=== PATIENT | female | born 1970 | race Hispanic/Latino ===

== ENCOUNTER 2023-09-10 09:07 | Emergency (ER) | payer OTHER ==
[2023-09-10] MEDS ORDERED: NA CHLORIDE 0.9% 1,000 ML ONE (09:30)
[2023-09-10] MEDS ORDERED: ONDANSETRON 4 MG/2 ML VIAL ONE (09:30)
[2023-09-10 09:53] LABS: Absolute Eosinophils 0.1 K/uL (0-0.5); Absolute Lymphocytes (CBC) 1.4 K/uL (0.7-4.9); Absolute Monocytes 0.5 K/uL (0.1-1.3); Absolute Neutrophil 3.2 K/uL (1.8-8.0); Basophils % 0.6 % (0-1.3); Eosinophils % 1.7 % (0-4.4); Hematocrit 42.9 % (36.0-45.0); Hemoglobin 14.2 g/dL (12.0-15.0); Lymphocytes % 26.3 % (15.3-44.8); MCH 29.3 pg (27.0-35.0); MCHC 33.1 g/dL (32.0-36.0); MCV 88.4 fL (80-100); MPV 8.2 fL (7.6-11.3); Monocytes % 9.5 % (3.3-12.3); Neutrophils % 61.9 % (41.7-73.7); Nucleated Red Blood Cells % 0.2 % (0-0); Platelets 245 thou/uL (152-406); RBC Red Blood Cell Count 4.86 M/uL (3.86-4.86); Red Cell Distribution Width 13.5 % (12.1-15.2)
[2023-09-10 10:12] LABS: Albumin 3.8 g/dL (3.4-5.0); Anion Gap 6.1 mEq/L (5.0-15.0); Bilirubin Total 0.2 mg/dL (0.2-1.0); Globulin 3.9 g/dL (2.3-3.5); Potassium 4.1 mEq/L (3.5-5.1); Protein, Total 7.7 g/dL (6.4-8.2); Troponin High Sensitivity 3.4 pg/mL (<58.9)
[2023-09-10 10:21] LABS: Specific Gravity 1.026 (1.005-1.030); Sqamous Epithelial <5 /HPF (None Seen); Transitional Epithelial <5 /HPF (None Seen); Urine Bacteria None Seen /HPF (<20); Urine Bilirubin NEGATIVE (Negative); Urine Blood Negative (Negative); Urine Clarity Clear (Clear); Urine Color Light-Yellow (Yellow); Urine Culture Reflex Order NOT NEEDED; Urine Glucose NEGATIVE (Negative); Urine Ketones NEGATIVE (Negative); Urine Microscopic Reflex YN ORDER UMIC; Urine Mucus Slight /HPF (None Seen); Urine Nitrite NEGATIVE (Negative); Urine Protein TRACE (Negative); Urine RBC <5 /HPF (None Seen); Urine Urobilinogen Normal (Normal); Urine WBC <5 /HPF (<5); Urine pH 6.5 (5.0-7.0)
--- NOTE | 2023-09-10 10:36 | RAD REPORT ---
EXAM DESCRIPTION: CT - Head Brain Wo Cont - 09/10/2023 10:04 am CLINICAL HISTORY: DIZZINESS COMPARISON: No comparisons TECHNIQUE: Noncontrast head CT images were obtained without IV contrast. Multiplanar reformats were generated and reviewed. All CT scans are performed using dose optimization technique as appropriate and may include automated exposure control or mA/KV adjustment according to patient size. FINDINGS: No intracranial hemorrhage, mass, or edema. Midline structures are unremarkable. Normal ventricular caliber for age. Longoria-white matter differentiation is preserved, without evidence of acute infarct. No abnormal extra- axial fluid collections. Mastoid air cells are well aerated. Left middle meatus pattern of opacification or complete left maxi llary sinus opacification. No acute bony findings. IMPRESSION: No evidence of an acute intracranial process.
--- NOTE | 2023-09-10 11:09 | EDPHYS ---
Physician Documentation [facility] Name: Gwendolyn Bucio Age: 53 yrs Sex: Female : 1970 Arrival Date: 09/10/2023 Time: 09:07 Bed 6 Private MD: ED Physician Tawanda Knight HPI: 09/09 09:28 This 53 yrs old Female presents to ER via Ambulatory with complaints of sp3 Vomiting/Diarrhea, Dizziness. 09:28 53-year-old female with no past medical history who takes no medications presents to sp3 the ED with chief complaint of vomiting, diarrhea and dizziness feelings of dehydration after taking influenza vaccine 3 days ago. Patient's daughter is at the bedside who states that patient "never complains". No blood or mucus in any of her emesis or stools. Patient denies headache, decreased p.o. intake, decreased urine output, chest pain, shortness of breath, back pain, abdominal pain per se, extremity pain, rash, known sick contacts or prolonged immobilization, known sick contacts, or any other signs or symptoms on ROS at this time. She also denies cough or URI symptoms.. Historical: - Allergies: 09:25 PENICILLINS; nj1 - PMHx: 09:25 None; nj1 - Immunization history:: Client reports receiving the 2nd dose of the Covid vaccine. - Infectious Disease History:: Denies. - Social history:: Smoking status: Patient denies any tobacco usage or history of. ROS: 09:29 Constitutional: Negative for fever, chills, and weight loss, Eyes: Negative for injury, sp3 pain, redness, and discharge, ENT: Negative for injury, pain, and discharge, Neck: Negative for injury, pain, and swelling, Cardiovascular: Negative for chest pain, palpitations, and edema, Respiratory: Negative for shortness of breath, cough, wheezing, and pleuritic chest pain, Back: Negative for injury and pain, MS/Extremity: Negative for injury and deformity, Skin: Negative for injury, rash, and discoloration, Neuro: Negative for headache, weakness, numbness, tingling, and seizure, Psych: Negative for depression, anxiety, suicide ideation, homicidal ideation, and hallucinations, Allergy/Immunology: Negative for hives, rash, and allergies, Endocrine: Negative for neck swelling, polydipsia, polyuria, polyphagia, and marked weight changes, 09:29 All other systems are negative, Exam: 09:30 Constitutional: This is a well developed, well nourished patient who is awake, alert, sp3 and in no acute distress. Head/Face: Normocephalic, atraumatic. Eyes: Pupils equal round and reactive to light, extra-ocular motions intact. Lids and lashes normal. Conjunctiva and sclera are non-icteric and not injected. Cornea within normal limits. Periorbital areas with no swelling, redness, or edema. ENT: Nares patent. No nasal discharge, no septal abnormalities noted. External auditory canals are clear. Oropharynx with no redness, swelling, or masses, exudates, or evidence of obstruction, uvula midline. Mucous membranes moist. Neck: Trachea midline, no thyromegaly or masses palpated, and no cervical lymphadenopathy. Supple, full range of motion without nuchal rigidity, or vertebral point tenderness. No Meningismus. Chest/axilla: Normal chest wall appearance and motion. Nontender with no deformity. No lesions are appreciated. Cardiovascular: Regular rate and rhythm with a normal S1 and S2. No gallops, murmurs, or rubs. Normal PMI, no JVD. No pulse deficits. Respiratory: Lungs have equal breath sounds bilaterally, clear to auscultation and percussion. No rales, rhonchi or wheezes noted. No increased work of breathing, no retractions or nasal flaring. Abdomen/GI: Soft, non-tender, with normal bowel sounds. No distension or tympany. No guarding or rebound. No evidence of tenderness throughout. Back: No spinal tenderness. No costovertebral tenderness. Full range of motion. Skin: Warm, dry with normal turgor. Normal color with no rashes, no lesions, and no evidence of cellulitis. MS/ Extremity: Pulses equal, no cyanosis. Neurovascular intact. Full, normal range of motion. Neuro: Awake and alert, GCS 15, oriented to person, place, time, and situation. Cranial nerves II-XII grossly intact. Motor strength 5/5 in all extremities. Sensory grossly intact. Cerebellar exam normal. Normal gait. Psych: Awake, alert, with orientation to person, place and time. Behavior, mood, and affect are within normal limits. 10:24 ECG was reviewed by the Attending Physician. EKG demonstrates normal sinus rhythm at 65 sp3 bpm with normal intervals, normal QRS, normal axis, normal axis ST segments without evidence of acute ischemia. Vital Signs: 09:15 BP 131 / 86; Pulse 66; Resp 16; Temp 97.1(TE); Pulse Ox 99% on R/A; Weight 74.84 kg; nj1 Height 5 ft. 5 in. ; 09:40 BP 132 / 80 Supine; Pulse 61; rs5 09:42 BP 133 / 83 Sitting; Pulse 60; rs5 09:44 BP 118 / 78 Standing; Pulse 71; Resp 16; Pulse Ox 97% ; rs5 11:03 BP 116 / 73; Pulse 58; Resp 16; Pulse Ox 97% ; ko1 09:15 Body Mass Index 27.46 (74.84 kg, 165.1 cm) nj1 MDM: 09:17 Patient medically screened. sp3 09:30 Data reviewed: vital signs, nurses notes, lab test result(s). ED course: 53-year-old sp3 female with mild gastroenteritis type symptoms after receiving influenza vaccine. Differential diagnosis includes side effects of vaccination, viral illness, foodborne illness, dehydration due to these items among others. I am not highly suspicious for acute coronary syndrome, CVA/TIA spectrum, sepsis, shock, vascular pathology, [employer] pathology, pathology, or any other critical illness. Workup will include laboratory values and urine analysis and treatment will include normal saline 1 L and ondansetron IV. Orthostatics also pending. Patient well-appearing in no acute distress with normal physical exam. If workup negative, we will safely discharge patient home with PCP follow-up as needed.. 09:52 ED course: Patient's blood pressure dropped by 15 points orthostatics with continued sp3 dizziness and lightheadedness. EKG, troponin and CT scan of the head added on to expand differential and workup.. 11:07 ED course: Patient feels much better after IV fluids. Workup is negative including CT sp3 scan of the head, laboratory values and urine analysis. Mild bump in LFTs is present. I reported this to the patient and family he will get follow-up with PCP starting with just repeat blood work. This time we will safely discharge patient home as I believe her symptoms are due to complications of her vaccination versus some other viral illness. No further medication or other intervention is required.. 09/09 09:25 Order name: CBC with Diff; Complete Time: 10:30 sp3 09/09 09:25 Order name: CMP; Complete Time: 10:30 sp3 09/09 09:25 Order name: Lipase; Complete Time: 10:30 sp3 09/09 09:25 Order name: Urinalysis w/ reflexes; Complete Time: 10:30 sp3 09/09 09:52 Order name: Add On-Lab 3 09/09 09:56 Order name: Troponin High Sensitivity; Complete Time: 10:30 EDMS 09/09 09:52 Order name: CT Head Brain wo Cont; Complete Time: 10:41 sp3 09/09 09:52 Order name: EKG; Complete Time: 09:52 sp3 09/09 09:25 Order name: IV Saline Lock; Complete Time: 09:32 sp3 09/09 09:25 Order name: Labs collected and sent; Complete Time: 09:32 sp3 09/09 09:25 Order name: Orthostatics; Complete Time: 09:48 sp3 09/09 09:52 Order name: EKG - Nurse/Tech; Complete Time: 10:17 sp3 Administered Medications: 09:33 Drug: NS 0.9% IV 1000 ml IV at 1 bolus Per protocol; 1000 mL bolus Route: IV; Rate: 1 ko1 bolus; Site: right antecubital; 10:00 Follow up: Response: No adverse reaction rs5 10:27 Follow up: IV Status: Completed infusion; IV Intake: 999ml rs5 09:33 Drug: Ondansetron IVP 4 mg IVP once; over 2 minutes Route: IVP; Site: right antecubital;ko1 10:00 Follow up: Response: No adverse reaction rs5 Disposition Summary: 09/10/23 11:09 Discharge Ordered Notes: Location: Home sp3 Condition: Stable sp3 Diagnosis - Dizziness, nausea, vaccination complication sp3 Followup: sp3 - With: Private Physician - When: Upon discharge from the Emergency Department - Reason: Continuance of care Discharge Instructions: - Discharge Summary Sheet sp3 - Dizziness sp3 Forms: - Medication Reconciliation Form sp3 - Antibiotic Education sp3 - Prescription Opioid Use sp3 - Patient Portal Instructions sp3 - Leadership Thank You Letter sp3 Signatures: Dispatcher [employer] Tawanda Johnson MD MD sp3 Marietta Barnes RN RN ko1 Merle Huffman RN RN nj1 Ubaldo Shah RN rs5 Corrections: (The following items were deleted from the chart) :25 09:25 Allergies: No Known Allergies; nj1 nj1
--- NOTE | 2023-09-10 11:09 | ER ---
Nurse's Notes [facility] Name: Gwendolyn Bucio Age: 53 yrs Sex: Female : 1970 Arrival Date: 09/10/2023 Time: 09:07 Bed 6 Private MD: Diagnosis: Dizziness, nausea, vaccination complication Presentation: 09/09 09:15 Chief complaint: Patient states: Diarrhea since Thursday, started vomiting today. nj1 Slightly nauseous at this time. Dizzy, worse upon standing. 09:15 Coronavirus screen: Vaccine status: Patient reports receiving the 2nd dose of the covid nj1 vaccine. Ebola Screen: Patient denies travel to an Ebola-affected area in the 21 days before illness onset. Initial Sepsis Screen: Does the patient meet any 2 criteria? No. Patient's initial sepsis screen is negative. Does the patient have a suspected source of infection? No. Patient's initial sepsis screen is negative. Risk Assessment: Do you want to hurt yourself or someone else? Patient reports no desire to harm self or others. Onset of symptoms was September 08, 2023. 09:15 Method Of Arrival: Ambulatory [facility] 09:15 Acuity: ELVIN 3 nj1 Historical: - Allergies: 09:25 PENICILLINS; nj1 - PMHx: 09:25 None; nj1 - Immunization history:: Client reports receiving the 2nd dose of the Covid vaccine. - Infectious Disease History:: Denies. - Social history:: Smoking status: Patient denies any tobacco usage or history of. Screenin:15 [facility] ED Fall Risk Assessment (Adult) History of falling in the last 3 months, rs5 including since admission No falls in past 3 months (0 pts) Confusion or Disorientation No (0 pts) Intoxicated or Sedated No (0 pts) Impaired Gait Yes (1 pt) Mobility Assist Device Used No (0 pt) Altered Elimination No (0 pt) Score/Fall Risk Level 0 - 2 = Low Risk Oriented to surroundings, Maintained a safe environment. 09:15 Abuse screen: Denies threats or abuse. Nutritional screening: No deficits noted. rs5 Tuberculosis screening: No symptoms or risk factors identified. Assessment: 09:15 General: Appears in no apparent distress. uncomfortable, Behavior is calm, cooperative. rs5 Pain: Denies pain. Neuro: Level of Consciousness is awake, alert, obeys commands, Oriented to person, place, time, situation, Reports dizziness. Cardiovascular: Patient's skin is warm and dry. Rhythm is regular. Respiratory: Airway is patent Respiratory effort is even, unlabored, Respiratory pattern is regular, symmetrical. GI: Abdomen is round non-distended, Abd is soft and non tender X 4 quads. Reports nausea. : No signs and/or symptoms were reported regarding the genitourinary system. EENT: No signs and/or symptoms were reported regarding the EENT system. Derm: Skin is intact, Skin is dry, Skin is normal. Musculoskeletal: Range of motion: intact in all extremities. 09:49 Reassessment: to bedside for orthostatics, pt reports dizziness when switching from rs5 laying to sitting position. Pt reports dizziness when switching form sitting to standing position, provider notified. 10:26 Reassessment: Patient and/or family updated on plan of care and expected duration. Pain rs5 level reassessed. Patient is alert, oriented x 3, equal unlabored respirations, skin warm/dry/pink. Patient states feeling better. 11:20 Reassessment: No changes from previously documented assessment. rs5 Vital Signs: 09:15 BP 131 / 86; Pulse 66; Resp 16; Temp 97.1(TE); Pulse Ox 99% on R/A; Weight 74.84 kg; nj1 Height 5 ft. 5 in. ; 09:40 BP 132 / 80 Supine; Pulse 61; rs5 09:42 BP 133 / 83 Sitting; Pulse 60; rs5 09:44 BP 118 / 78 Standing; Pulse 71; Resp 16; Pulse Ox 97% ; rs5 11:03 BP 116 / 73; Pulse 58; Resp 16; Pulse Ox 97% ; ko1 09:15 Body Mass Index 27.46 (74.84 kg, 165.1 cm) [facility] ED Course: 09:11 Patient arrived in ED. mr 09:12 Tawanda Knight MD is Attending Physician. sp3 09:15 Ubaldo Shah, KANDY is Primary Nurse. rs5 09:15 Patient has correct armband on for positive identification. Placed in gown. Bed in low rs5 position. Call light in reach. Side rails up X2. 09:15 No provider procedures requiring assistance completed. rs5 09:20 Inserted saline lock: 22 gauge in left antecubital area, using aseptic technique. Blood rs5 collected. :25 Triage completed. nj1 09:25 Arm band placed on. nj1 09:32 CBC with Diff Sent. ko1 09:32 CMP Sent. ko1 09:32 Lipase Sent. ko1 10:00 EKG done, by ED staff, reviewed by Tawanda Knight MD. ko1 10:05 CT Head Brain wo Cont In Process Unspecified. EDMS 10:17 Add On-Lab Sent. rs5 11:03 Provided Education on: meds/labs. Client placed on continuous cardiac and pulse ko1 oximetry monitoring. NIBP monitoring applied. playground monitor on. Door closed. Noise minimized. Lights dimmed. Warm blanket given. Pillow given. 11:20 IV discontinued, intact, bleeding controlled, No redness/swelling at site. Pressure rs5 dressing applied. Administered Medications: 09:33 Drug: NS 0.9% IV 1000 ml IV at 1 bolus Per protocol; 1000 mL bolus Route: IV; Rate: 1 ko1 bolus; Site: right antecubital; 10:00 Follow up: Response: No adverse reaction rs5 10:27 Follow up: IV Status: Completed infusion; IV Intake: 999ml rs5 09:33 Drug: Ondansetron IVP 4 mg IVP once; over 2 minutes Route: IVP; Site: right antecubital;ko1 10:00 Follow up: Response: No adverse reaction rs5 Medication: 10:27 VIS not applicable for this client. rs5 Intake: 10:27 IV: 999ml; Total: 999ml. rs5 Outcome: 11:09 Discharge ordered by . sp3 11:20 Discharged to home ambulatory, rs5 11:20 Condition: stable rs5 11:20 Discharge instructions given to patient, family, Instructed on discharge instructions, follow up and referral plans. Demonstrated understanding of instructions, follow-up care, 11:22 Patient left the ED. aa5 Signatures: Dispatcher [employer] EDMI Linda Story, Julius Madrid Betsy Nguyen, RN RN aa5 Tawanda Knight MD MD sp3 Marietta Barnes RN RN ko1 Ubaldo Shah RN RN rs5 Merle Huffman RN RN nj1 Corrections: (The following items were deleted from the chart) : 09:25 Allergies: No Known Allergies; nj1 nj1 09:49 09:44 BP 118 / 78; Pulse 71bpm; Resp 16bpm; Pulse Ox 97%; ko1 rs5
[2023-09-10 11:37] VITALS: BP 116/73; TEMP 97.1; O2SAT 97
--- NOTE | 2023-09-13 13:34 | EKG ---
Test Date: 2023-09-10 Test Time: 09:59:09 [employer] Team Member: CHANCE MEASUREMENT RESULTS: Intervals: Rate: 61 [place]: 162 QRSD: 80 QT: 422 QTc: 424 [place]: P: 56 [place]: 162 QRS: 83 T: 38 INTERPRETIVE STATEMENTS: Poor data quality, interpretation may be adversely affected Normal sinus rhythm Normal ECG No previous ECG available for comparison Electronically Signed On 09-13-23 13:28:35 CDT by Osiel Weiss
== END 2023-09-10 11:22 | disposition home or self-care (01) ==
LOC: ER 09:07
DX: R42 Dizziness and giddiness (principal); R11.0 Nausea; T50.B95A Adverse effect of other viral vaccines, initial encounter
CPT/HCPCS: 96361; 93005; 85025; 81001; 36415; 84484; 83690; 80053; 70450; 96374; 99285; J2405; J7030

== ENCOUNTER 2023-11-24 21:39 | Emergency (ER) | payer OTHER ==
--- OUTSIDE RECORDS SUMMARY | 2023-11-24 21:42 | XMS REPORT | Continuity of Care Document ---
Author Name Unknown Address [address] [place] [address]. [address] th[address] Address [address] [facility]. [address] [place] [address] Care Team Providers Care Packer Denture Name Role Phone AMBIKA ARBOLEDA Attending Clinician Unavailable INJ, [place] Attending Clinician Unavailable HERBIE PEREZ Attending Clinician Unavailable MD HARVEY Attending Clinician Unavail le LAB47 Attending Clinician Unavailable COVID-PFIZER HAFSA NEIL Attending Clinician Un available Payers Payer Name Policy Type Policy Number Effective Date Expirati on Date Source [employer] MP [employer] 94 ON 9 [id number] 2023 00:00:00 Allergies, Adverse Reactions, Alerts Allergy Name Allergy Type Status Severity Reaction(s) Onset Date Inactive Date Treating Clinician Comments Source Penicill ins Drug Allergy Active Rash 11-03 00:00: 00 Raiza De La O Externa l Social History Social Habit Start Date Stop Date Quantity Comments Source Gender identity Sarah Coelho - External Sexual orientation K debbie Coelho - External Alcoholic beverage intake 2023-11-04 00:00:00 2023-11-04 00:00:00 Current drinker of alcohol (finding) Raiza Coelho - External History of Social function 2022-11-06 00:00:00 2022-11-06 00:00:00 Raiza Coelho - External Alcohol Comment 2022-11-03 00:00:00 2022-11-03 00:00:00 occ Raiza Coelho - External Sex assigned at 1970 00:00:00 1970 00:00:00 Raiza Coelho - External Smoking Status Start Date Stop Date Source Tobacco smoking consumption unknown Raiza Shankar Never smoked tobacco Raiza Shankar Medications Ordered Medication Name Filled Medication Name Start Date Stop Date Current Medication? Ordering Clinician Indication Dosage Frequency Signature (SIG) Comments Components Source Multiple Vitamins-Mi nerals (One-A-Day Womens 50+ Advantage) oral Tablet 11-03 10:53: 59 Yes Take by mouth Raiza Seybold - Externa l Garnett 3-6-9 Fatty Acids (Garnett 3-6-9 Complex) oral Capsule 11-03 10:53: 59 Yes Take by mouth Raiza Seybold - Externa l Ascorbic Acid (Vitamin C) 500 MG oral Chewable Tablet 11-03 10:53: 59 Yes Take by mouth Raiza Seybold - Externa l ASPIRIN 81 OR 11-03 10:53: 59 Yes 81mg QD Take 81 mg by mouth daily Raiza Lagunaybold - Externa l methylPREDN ISolone (Medrol) 4 MG oral Tablet Therapy Pack 09-22 00:00: 00 09-29 04:59 :00 Yes 1{jeannette} Take 1 jeannette by mouth See Admin Instructio ns for 6 days Use as directed.. Raiza Seybold - Externa l Multiple Vitamins-Mi nerals (-A-Day Womens 50+ Advantage) oral Tablet 09-06 15:24: 03 Yes Take by mouth Raiza Seybold - Externa l Garnett 3-6-9 Fatty Acids (Garnett 3-6-9 Complex) oral Capsule 09-06 15:24: 03 Yes Take by mouth Raiza Seybold - Externa l Ascorbic Acid (Vitamin C) 500 MG oral Chewable Tablet 09-06 15:24: 03 Yes Take by mouth Raiza Seybold - Externa l ASPIRIN 81 OR 09-06 15:24: 03 Yes 81mg QD Take 81 mg by mouth daily Raiza Lagunaybold - Externa l Methylpredn isolone Acetate (DEPO-MEDRO L) 40 mg/mL 08-20 18:45: 00 08-20 18:34 :00 No 49 40mg Raiza Seybold - Externa l Multiple Vitamins-Mi nerals (One-A-Day Womens 50+ Advantage) oral Tablet 08-20 13:18: 03 Yes Take by mouth Raiza de leon Garnett 3-6-9 Fatty Acids (Garnett 3-6-9 Complex) oral Capsule 08-20 13:18: 03 Yes Take by mouth Raiza de leon Ascorbic Acid (Vitamin C) 500 MG oral Chewable Tablet 08-20 13:18: 03 Yes Take by mouth Raiza de leon ASPIRIN 81 OR 08-20 13:18: 03 Yes 81mg Take 81 mg by mouth daily Raiza de leon Acetaminoph en (Tylenol 8 Hour Arthritis Pain) 650 MG oral Tab CR 08-20 00:00: 00 11-19 04:59 :00 No 1300mg [id number] 3D Take 2 tablets (1,300 mg total) by mouth every 8 hours as needed for pain Take 2 tablets every 8 hours as needed for pain, no more than 4 tablets/da y.. Raiza de leon Multiple Vitamins-Mi nerals (One-A-Day Womens 50+ Advantage) oral Tablet 08-15 13:31: 13 Yes Take by mouth Raiza de leon Garnett 3-6-9 Fatty Acids (Garnett 3-6-9 Complex) oral Capsule 08-15 13:31: 13 Yes Take by mouth Raiza de leon Ascorbic Acid (Vitamin C) 500 MG oral Chewable Tablet 08-15 13:31: 13 Yes Take by mouth Raiza de leon Na Sulfate-K Sulfate-Mg Sulf (SUPREP BOWEL PREP KIT) 17.5-3.13-1 .6 GM/177ML oral Solution 08-15 00:00: 00 Yes [id number] Instructio ns provided to patient. Follow instructio ns provided by provider. Raiza de leon Immunizations Ordered Immunization Name Filled Immunization Name Date Status Comments Source COVID-19 Bivalent vaccine [employer] 2022-04-08 00:00:00 Completed Raiza Shankar Covid-19 Vaccine (Pfizer), Mrna-lnp, Hilario Protein, Pf, 30mcg/0.3ml,IM 2021-04-06 00:00:00 Completed Raiza Seybold - External Covid-19 Vaccine (Pfizer), Mrna-lnp, Hilario Protein, Pf, 30mcg/0.3ml,IM 2020-07-13 00:00:00 Completed Raiza Seybold - External Covid-19 Vaccine (Pfizer), Mrna-lnp, Hilario Protein, Pf, 30mcg/0.3ml,IM 2020-06-22 00:00:00 Completed Raiza Seybold - External Covid-19 Vaccine (Pfizer), Mrna-lnp, Hilario Protein, Pf, 30mcg/0.3ml,IM Unknown Completed Raiza Seybol d - External Covid-19 Vaccine (Pfizer), Mrna-lnp, Hilario Protein, Pf, 30mcg/0.3ml,IM Unknown Completed Raiza Seybol d - External Influenza, Injectable, Mdck, Quadrivalent With Preservative Unknown Completed Raiza Seybold - External COVID-19 Bivalent vaccine PFIZER 12+ Unknown Completed Raiza Se ybold - External Covid-19 Vaccine (Pfizer), Mrna-lnp, Hilario Protein, Pf, 30mcg/0.3ml,IM Unknown Completed Raiza Seybol d - External Covid-19 Vaccine (Pfizer), Mrna-lnp, Hilario Protein, Pf, 30mcg/0.3ml,IM Unknown Completed Raiza Seybol d - External Covid-19 Vaccine (Pfizer), Mrna-lnp, Hilario Protein, Pf, 30mcg/0.3ml,IM Unknown Completed Raiza Seybol d - External Influenza, Injectable, Mdck, Quadrivalent With Preservative Unknown Completed Raiza Seybold - External COVID-19 Bivalent vaccine PFIZER 12+ Unknown Completed Raiza Se ybold - External Covid-19 Vaccine (Pfizer), Mrna-lnp, Hilario Protein, Pf, 30mcg/0.3ml,IM Unknown Completed Raiza Seybol d - External Covid-19 Vaccine (Pfizer), Mrna-lnp, Hilario Protein, Pf, 30mcg/0.3ml,IM Unknown Completed Raiza Seybol d - External Covid-19 Vaccine (Pfizer), Mrna-lnp, Hilario Protein, Pf, 30mcg/0.3ml,IM Unknown Completed Raiza Riosol d - External COVID-19 Bivalent vaccine PFIZER 12+ Unknown Completed Raiza Laguna ybold - External Covid-19 Vaccine (Pfizer), Mrna-lnp, Hilario Protein, Pf, 30mcg/0.3ml,IM Unknown Completed Raiza Riosol d - External Vital Signs Vital Name Observation Time Observation Value Comments S ource Body height 2023-11-04 15:52:00 167.6 cm Sarah ey Seybold - External Body weight 2023-11-04 15:52:00 77.111 kg Sarah ey Seybold - External BMI 2023-11-04 15:52:00 27.44 kg/m2 Sarah ey Seybold - External Body height 2023-09-23 18:27:00 167.6 cm Sarah ey Seybold - External Body weight 2023-09-23 18:27:00 77.111 kg Asrah ey Seybold - External BMI 2023-09-23 18:27:00 27.44 kg/m2 Sarah ey Seybold - External Body height 2023-08-21 18:16:00 167.6 cm Sarah ey Seybold - External Body weight 2023-08-21 18:16:00 74.844 kg Sarah ey Seybold - External BMI 2023-08-21 18:16:00 26.63 kg/m2 Sarah ey Seybold - External Systolic blood pressure 2022-08-15 18:28:00 120 mm[Hg] Raiza Rioso ld - External Diastolic blood pressure 2022-08-15 18:28:00 76 mm[Hg] Raiza Rioso ld - External Heart rate 2022-08-15 18:28:00 87 /min Solomonse y Seybold - External Body temperature 2022-08-15 18:28:00 36.33 Deneen Raiza Seybold - External Respiratory rate 2022-08-15 18:28:00 17 /min Raiza Seybold - External Body height 2022-08-15 18:28:00 152 cm Sarah ey Seybold - External Body weight 2022-08-15 18:28:00 80.377 kg Sarah ey Seybold - External BMI 2022-08-15 18:28:00 34.79 kg/m2 Sarah ey Seybold - External Oxygen saturation in Arterial blood by Pulse oximetry 2022-08-15 18:28:00 97 /min Raiza Mckeon ld - External Encounters Start Date/Time End Date/Time Encounter Type Admission Type Attending [facility] Care Department Encounter ID Source 2023-11-04 10:30:00 2023-11-04 10:30:00 Outpatient AMBIKA ARBOLEDA [id number] Raiza beronica 2023-10-03 00:00:00 2023-10-03 00:00:00 Outpatient RAIZA BORGES [id number] Raiza ybberonica 2023-09-23 13:15:00 2023-09-23 13:15:00 Outpatient RAIZA BORGES [id number] Raiza [facility] 2023-09-23 13:10:00 2023-09-23 13:10:00 [id number] [facility] 15:15:00 2023-09-07 15:15:00 Outpatient LALO YI [id number] [facility]-08-21 13:00:00 2023-08-21 13:00:00 Outpatient AMBIKA [facility]OLEDA [id number] [facility]-20 00:00:00 2023-08-20 00:00:00 Outpatient AMBIKA ARBOLEDA [id number] [facility] 2022-11-13 00:00:00 2022-11-13 00:00:00 Outpatient HERBIE PEREZ [id number] Raiza Seybberonica 2022-11-05 08:00:00 2022-11-05 08:00:00 Outpatient HERBIE PEREZ [id number] Raiza Coelho 2022-10-31 00:00:00 2022-10-31 00:00:00 Outpatient MD RAIZA PATTERSON [id number] Raiza Coelho 2022-10-28 00:00:00 2022-10-28 00:00:00 Outpatient MD RAIZA PATTERSON [id number] Raiza william 2022-08-22 10:30:00 2022-08-22 10:30:00 Outpatient RAIZA BORGES [id number] [facility] 2022-08-19 09:50:00 2022-08-19 09:50:00 Outpatient LAB47 RAIZA BORGES [id number] [facility] 2022-08-19 00:00:00 2022-08-19 00:00:00 Outpatient RAIZA BORGES [id number] [facility] 2022-08-15 14:15:00 2022-08-15 14:15:00 Outpatient LAB RAIZA BORGES [id number] Raiza william 2022-08-15 13:20:00 2022-08-15 13:20:00 Outpatient CHRIS HERBIEMakenna BORGES [id number] Raiza Coelho 2022-04-08 09:15:00 2022-04-08 09:15:00 Outpatient COVID-PFIZE HAFSA ETIENNE [id number] [facility] Date/Time Note Provider Source 2023-11-04 10:54:02 Chief Complaint Patient presents with Follow-up 6 weeks f/u 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,[facility] 09/23/2023 Vijaya Rivera MA II Medication reviewed with pt and [employer] [facility]ij[facility] Rivera [facility], [facility] 2023-09-23 13:36:16 Chief Complaint Patient presents with Follow-up 4 weeks f/u Plantar fascial fibromatosis lt foot and heel pain heel has not gotten any better has gotten worse can't sleep or work per pt and daughter,samir 08/21/2023 Vijaya Rivera MA II Medication reviewed with pt and daughter RaizaLaquita [facility] 2023-08-21 13:18:05 Left heel pain, No injury/trauma Pain began end of April, pain began suddenly Happened in the past 3years only lasted for max 3 weeks this time the pain consistent. Pain described as sharp Bentley Hines [facility]
--- NOTE | 2023-11-24 22:26 | EDPHYS ---
Physician Documentation [facility] Name: Gwendolyn Bucio Age: 53 yrs Sex: Female : 1970 Arrival Date: 11/24/2023 Time: 21:39 Bed IW2 Private MD: ED Physician Tonny Caban HPI: 11/23 23:35 This 53 yrs old Female presents to ER via Ambulatory with complaints of Leg kb Injury. 23:35 Pt is a 53 year old female who presents for bleeding varicose vein that started while kb in the shower just dual rate dealer. Daughter states she applied pressure and it stopped. Denies any injury or trauma. . Historical: - Allergies: 22:19 PENICILLINS; jb4 - Home Meds: 22:19 None [Active]; jb4 - PMHx: 22:19 None; jb4 - Immunization history:: Adult Immunizations up to date. - Infectious Disease History:: Denies. - Social history:: Smoking status: Patient denies any tobacco usage or history of. ROS: 23:35 Constitutional: As per HPI kb Exam: 23:35 Constitutional: This is a well developed, well nourished patient who is awake, alert, kb and in no acute distress. Head/Face: Normocephalic, atraumatic. ENT: Moist Mucous membranes Cardiovascular: Regular rate Respiratory: Respirations even and unlabored. No increased work of breathing. Talking in full sentences MS/ Extremity: Pulses equal, no cyanosis. Neurovascular intact. Full, normal range of motion. Neuro: Awake and alert, GCS 15, oriented to person, place, time, and situation. Moves all extremities. Normal gait. 23:35 Skin: varicose veins to bilateral lower extremities. Vital Signs: 22:16 BP 148 / 75; Pulse 78; Resp 16; Temp 97.4; Pulse Ox 98% ; jb4 22:16 Weight 78.47 kg; Height 5 ft. 1 in. ; Pain 0/10; jb4 22:16 Body Mass Index 32.69 (78.47 kg, 154.94 cm) jb4 22:16 Pain Scale: Adult jb4 MDM: 22:02 Patient medically screened. kb 23:36 Differential diagnosis: bleeding varicose vein, puncture. Data reviewed: vital signs, kb nurses notes. Historians other than the Patient: Daughter/Son: daughter. Counseling: I had a detailed discussion with the patient and/or guardian regarding the historical points, exam findings, and any diagnostic results supporting the discharge/admit diagnosis, the need for outpatient follow up, a family practitioner, to return to the emergency department if symptoms worsen or persist or if there are any questions or concerns that arise at home. 23:36 ED course: Bleeding controlled, no open wound apparent. surgicel and dressing applied. kb Educated on return precautions. Administered Medications: No medications were administered Disposition: 11/24 04:57 Co-signature as Attending Physician, Tonny Caban MD I agree with the assessment and becca plan of care. Disposition Summary: 11/24/23 22:26 Discharge Ordered Notes: Location: Home kb Condition: Stable kb Diagnosis - Varicose veins of other specified sites - right posterior thigh, bleeding controlledkb Followup: kb - With: Emergency Department - When: As needed - Reason: Worsening of condition Followup: kb - With: Private Physician - When: 2 - 3 days - Reason: Recheck today's complaints, Continuance of care, Re-evaluation by your physician Discharge Instructions: - Discharge Summary Sheet kb - Bleeding Varicose Veins kb Forms: - Medication Reconciliation Form kb - Antibiotic Education kb - Prescription Opioid Use kb - Patient Portal Instructions kb - Leadership Thank You Letter kb Signatures: Otilia Cabral, METAL MOLDER-C METAL MOLDER-Tonny Estrada MD MD cha Bryson, James, RN RN jb4
--- NOTE | 2023-11-24 22:26 | ER ---
Nurse's Notes [facility] Name: Gwendolyn Bucio Age: 53 yrs Sex: Female : 1970 Arrival Date: 11/24/2023 Time: 21:39 Bed IW2 Private MD: Diagnosis: Varicose veins of other specified sites-right posterior thigh, bleeding controlled Presentation: 11/23 22:16 Chief complaint: Patient states: Vein to right leg bleeding. Was able to stop bleeding jb4 with pressure. Coronavirus screen: Vaccine status: Patient reports receiving the 2nd dose of the covid vaccine. Ebola Screen: Patient negative for fever greater than or equal to 101.5 degrees Fahrenheit, and additional compatible Ebola Virus Disease symptoms. Initial Sepsis Screen: Does the patient meet any 2 criteria? No. Patient's initial sepsis screen is negative. Does the patient have a suspected source of infection? No. Patient's initial sepsis screen is negative. Risk Assessment: Do you want to hurt yourself or someone else? Patient reports no desire to harm self or others. Onset of symptoms was November 24, 2023. 22:16 Method Of Arrival: Ambulatory jb4 22:16 Acuity: ELVIN 4 jb4 Historical: - Allergies: 22:19 PENICILLINS; jb4 - Home Meds: 22:19 None [Active]; jb4 - PMHx: 22:19 None; jb4 - Immunization history:: Adult Immunizations up to date. - Infectious Disease History:: Denies. - Social history:: Smoking status: Patient denies any tobacco usage or history of. Screenin:37 [facility] ED Fall Risk Assessment (Adult) History of falling in the last 3 months, jb4 including since admission No falls in past 3 months (0 pts) Confusion or Disorientation No (0 pts) Intoxicated or Sedated No (0 pts) Impaired Gait No (0 pts) Mobility Assist Device Used No (0 pt) Altered Elimination No (0 pt) Score/Fall Risk Level 0 - 2 = Low Risk Oriented to surroundings, Maintained a safe environment. Abuse screen: Denies threats or abuse. Nutritional screening: No deficits noted. Tuberculosis screening: No symptoms or risk factors identified. Assessment: 22:37 Reassessment: Bandage placed no affected area by KANDY Salazar. General: Appears in no jb4 apparent distress. comfortable, Behavior is calm, cooperative, appropriate for age. Pain: Denies pain. Cardiovascular: Patient's skin is warm and dry. Respiratory: Airway is patent Respiratory effort is even, unlabored, Respiratory pattern is regular, symmetrical. Musculoskeletal: Circulation, motion, and sensation intact. Range of motion: intact in all extremities. Vital Signs: 22:16 BP 148 / 75; Pulse 78; Resp 16; Temp 97.4; Pulse Ox 98% ; jb4 22:16 Weight 78.47 kg; Height 5 ft. 1 in. ; Pain 0/10; jb4 22:16 Body Mass Index 32.69 (78.47 kg, 154.94 cm) jb4 22:16 Pain Scale: Adult jb4 ED Course: 21:40 Patient arrived in ED. jj6 22:02 Otilia Cabral FNP-C [facility] kb 22:02 Tonny Caban MD is Attending Physician. kb 22:19 Triage completed. jb4 22:37 Patient has correct armband on for positive identification. Side rails up X 1. Provided jb4 Education on: Discharge instructions.. 22:37 No provider procedures requiring assistance completed. Patient did not have IV access jb4 during this emergency room visit. Administered Medications: No medications were administered Medication: 22:37 VIS not applicable for this client. jb4 Outcome: 22:26 Discharge ordered by . kb 22:37 Discharged to home ambulatory, jb4 22:37 Condition: stable 22:37 Discharge instructions given to patient, Instructed on discharge instructions, follow up and referral plans. Demonstrated understanding of instructions, follow-up care, 22:38 Patient left the ED. jb4 Signatures: Otilia Cabral FNP-C FNP-Ckb Bryson, James, RN RN jb4 Anastasia Dixon jj6
[2023-11-24 22:51] VITALS: BP 148/75; TEMP 97.4; O2SAT 98
== END 2023-11-24 22:38 | disposition home or self-care (01) ==
LOC: ER 21:39
DX: I83.891 Varicose veins of right lower extremity with other complications (principal)
CPT/HCPCS: 99282